=== PATIENT | female | born 1960 | race Caucasian/White ===

== ENCOUNTER 2020-06-14 07:46 | Inpatient (IN) | payer MEDICARE ==
[2020-06-10 13:45] LABS: BASOPHILS % 0.3 % (0.0-1.0); EOSINOPHILS # (AUTO) 0.2 (0.0-0.4); EOSINOPHILS % 1.4 % (0.0-6.0); HEMATOCRIT 41.4 % (34.2-44.1); HEMOGLOBIN 13.8 g/dL (12.0-16.0); LYMPHOCYTES # (AUTO) 3.3 (1.0-3.2); MEAN CORPUSCULAR HEMOGLOBIN 30.3 pg (28-32); MEAN CORPUSCULAR HGB CONC 33.3 g/dL (31-35); MONOCYTES # (AUTO) 0.7 (0.2-0.8); NEUTROPHILS # (AUTO) 7.5 (2.1-6.9); NEUTROPHILS % 63.8 % (38.7-80.0); PLATELET COUNT 308 x10e3/uL (140-360); RED BLOOD COUNT 4.55 x10e6/uL (3.6-5.1); RED CELL DISTRIBUTION WIDTH 13.1 % (11.7-14.4)
[2020-06-10 13:55] LABS: INR 0.83; PROTHROMBIN TIME 11.8 seconds (11.9-14.5)
[2020-06-10 13:56] LABS: PARTIAL THROMBOPLASTIN TIME 25.7 seconds (23.8-35.5)
[2020-06-10 14:01] LABS: BLOOD UREA NITROGEN 11 mg/dL (7-26); BUN/CREATININE RATIO 13 (6-25); CALCIUM 10.1 mg/dL (8.4-10.2); CARBON DIOXIDE 23 mmol/L (22-29); CHLORIDE 108 mmol/L (98-107); CREATININE, SERUM 0.85 mg/dL (0.57-1.11); EST GLOMERULAR FILTRATION RATE > 60 ML/MIN (60-); GLUCOSE 103 mg/dL (74-118); SODIUM 141 mmol/L (136-145)
[~2020-06-14] VITALS: Ht 172.7 cm; Wt 106.6 kg
[~2020-06-14 07:46] MED LIST: ATORVASTATIN CA10 MG PO; CYMBALTA30 MG PO; ESTRADIOL CREAM TOP; OMEPRAZOLE40 MG PO; OZEMPIC0.25 MG/0. SC; REQUIP3 MG PO; TEMAZEPAM30 MG PO; TRAZODONE HCL100 MG PO; XIIDRA1 EACH OP
[2020-06-14] MEDS ORDERED: CEFAZOLIN SOD 1 GM/NS 50ML 100 ML IV ONE (08:18)
[2020-06-14] MEDS ORDERED: BUPIVACAINE 0.25% 30ML SDV ONE (08:41)
[2020-06-14] MEDS ORDERED: METOCLOPRAMIDE HCL 10 MG/2ML VIAL ONE (10:34)
[2020-06-14] MEDS ORDERED: PROMETHAZINE HCL (IM) 25 MG/ML VIAL IM ONE (10:43)
[2020-06-14] MEDS ORDERED: FENTANYL CITRATE/PF 100MCG/2 ML INJ ONE ×2 (10:52→13:11)
[2020-06-14] MEDS ORDERED: SCOPOLAMINE 1.5 MG PATCH TOP SCH (11:45)
[2020-06-14 11:49] VITALS: BP 132/73
[2020-06-14 11:50] VITALS: BP 132/73
[2020-06-14 11:53] VITALS: BP 132/73
[2020-06-14 12:08] VITALS: BP 123/70
[2020-06-14] MEDS ORDERED: ONDANSETRON HCL INJ 2MG/ML 2ML 2 MG/ML VIAL ONE ×2 (12:18→12:55)
[2020-06-14] MEDS ORDERED: PROPOFOL IV EMULSION 10 MG/ML 20 ML VIAL ONE (12:55)
[2020-06-14] MEDS ORDERED: DEXAMETHASONE SOD PHOS INJ 4 MG/ML VIAL ONE (12:55)
[2020-06-14] MEDS ORDERED: ROCURONIUM BROMIDE 10 MG/ML 5ML VIAL IV ONE (12:55)
[2020-06-14] MEDS ORDERED: SEVOFLURANE INHAL SOLN 250 ML PEN BTL ONE (12:55)
[2020-06-14] MEDS ORDERED: LIDOCAINE HCL 2% LOCAL INJ 5 ML SDV VIAL INJ ONE (12:55)
[2020-06-14] MEDS ORDERED: MORPHINE SULFATE 2 MG/ML SYR 1ML ONE (13:07)
[2020-06-14] MEDS ORDERED: MIDAZOLAM HCL 2 MG/2 ML VIAL ONE (13:11)
[2020-06-14] MEDS: MORPHINE SULFATE 2 MG/ML SYR 1ML IV PRN ×3 (16:39→23:10)
[2020-06-14] MEDS: SODIUM CHLORIDE 0.9% 1000ML 1,000 ML IV SCH ×2 (16:39→20:45)
[2020-06-14] MEDS ORDERED: CIPROFLOXACIN/HYDROCORTISONE OTIC 10ML BTL OT SCH (17:00)
[2020-06-14] MEDS: LIFITEGRAST OP SCH (17:00)
[2020-06-14] MEDS: PANTOPRAZOLE SOD 40 MG TABEC PO SCH (18:22)
[2020-06-14] MEDS: CIPROFLOXACIN-DEXAMETHASONE (OTIC) 7.5 ML BOTTLE OT SCH (18:31)
[2020-06-14 20:00] VITALS: BP 116/68
[2020-06-14] MEDS: ENOXAPARIN SOD INJ 40 MG/0.4 ML SYR SC SCH (20:44)
[2020-06-14] MEDS: ONDANSETRON HCL INJ 2MG/ML 2ML 2 MG/ML VIAL IV PRN (20:45)
[2020-06-14] MEDS ORDERED: TRAZODONE HCL 50 MG TAB PO SCH (21:00)
[2020-06-14] MEDS ORDERED: ROPINIROLE HCL 3 MG PO SCH (21:00)
[2020-06-14] MEDS ORDERED: ROPINIROLE HCL 1 MG TAB PO SCH (21:00)
[2020-06-15] VITALS: BP 130/75
[2020-06-15] MEDS: MORPHINE SULFATE 2 MG/ML SYR 1ML IV PRN ×3 (02:30→06:57)
[2020-06-15] MEDS: ONDANSETRON HCL INJ 2MG/ML 2ML 2 MG/ML VIAL IV PRN (04:41)
[2020-06-15] MEDS: SODIUM CHLORIDE 0.9% 1000ML 1,000 ML IV SCH (04:42)
[2020-06-15 04:55] LABS: BASOPHILS % 0.2 % (0.0-1.0); EOSINOPHILS % 0.1 % (0.0-6.0); HEMOGLOBIN 12.7 g/dL (12.0-16.0); LYMPHOCYTES # (AUTO) 1.9 (1.0-3.2); LYMPHOCYTES % 11.2 % (18.0-39.1); MEAN CORPUSCULAR HEMOGLOBIN 30.3 pg (28-32); MEAN CORPUSCULAR HGB CONC 33.4 g/dL (31-35); MEAN CORPUSCULAR VOLUME 90.7 fL (81-99); MONOCYTES # (AUTO) 1.1 (0.2-0.8); MONOCYTES % 6.1 % (4.4-11.3); NEUTROPHILS # (AUTO) 14.1 (2.1-6.9); NEUTROPHILS % 81.6 % (38.7-80.0); PLATELET COUNT 313 x10e3/uL (140-360); RED BLOOD COUNT 4.19 x10e6/uL (3.6-5.1); RED CELL DISTRIBUTION WIDTH 13.2 % (11.7-14.4)
[2020-06-15 05:11] LABS: ALANINE AMINOTRANSFERASE 22 IU/L (0-55); ALBUMIN 3.7 g/dL (3.5-5.0); ALBUMIN/GLOBULIN RATIO 1.3 (0.8-2.0); ALKALINE PHOSPHATASE 86 IU/L (40-150); ANION GAP 11.9 mmol/L (8-16); BLOOD UREA NITROGEN 10 mg/dL (7-26); BUN/CREATININE RATIO 13 (6-25); CALCIUM 8.9 mg/dL (8.4-10.2); CARBON DIOXIDE 24 mmol/L (22-29); CHLORIDE 108 mmol/L (98-107); CREATININE, SERUM 0.78 mg/dL (0.57-1.11); EST GLOMERULAR FILTRATION RATE > 60 ML/MIN (60-); GLUCOSE 111 mg/dL (74-118); MAGNESIUM 1.8 MG/DL (1.3-2.1); PHOSPHORUS 2.3 MG/DL (2.3-4.7); POTASSIUM 3.9 mmol/L (3.5-5.1); SODIUM 140 mmol/L (136-145)
[2020-06-15 05:56] VITALS: BP 129/78
[2020-06-15] MEDS ORDERED: HYDROCODONE/APAP 7.5MG-325MG 1 EA TAB PO PRN (07:00)
[2020-06-15 08:00] VITALS: BP 158/84
[2020-06-15] MEDS: CIPROFLOXACIN-DEXAMETHASONE (OTIC) 7.5 ML BOTTLE OT SCH (08:40)
[2020-06-15] MEDS: ENOXAPARIN SOD INJ 40 MG/0.4 ML SYR SC SCH (08:40)
[2020-06-15] MEDS: PANTOPRAZOLE SOD 40 MG TABEC PO SCH (08:40)
[2020-06-15] MEDS: LIFITEGRAST OP SCH (08:41)
[2020-06-15 08:42] VITALS: BP 158/84
[2020-06-15] MEDS ORDERED: ATORVASTATIN 10 MG TAB PO SCH (09:00)
[2020-06-15] MEDS ORDERED: DULOXETINE HCL 30 MG DELAYED RELEASE PO SCH (09:00)
== END 2020-06-15 09:33 | disposition home or self-care (01) | DRG 621 ==
LOC: OR 07:46 → PACU V 09:16 → COVIDICU 12:42 → MED/SURG 17:46
PROVIDERS: ADMIT Internal Medicine; ATTEND Internal Medicine
PROC: 0DB64Z3 Excision of Stomach, Percutaneous Endoscopic Approach, Vertical (ICD-10-PCS; principal; 2020-06-14 09:30)
DX: E66.01 Morbid (severe) obesity due to excess calories (principal); I10 Essential (primary) hypertension; G47.33 Obstructive sleep apnea (adult) (pediatric); R73.03 Prediabetes; K66.0 Peritoneal adhesions (postprocedural) (postinfection); E78.5 Hyperlipidemia, unspecified; K21.9 Gastro-esophageal reflux disease without esophagitis; G25.81 Restless legs syndrome; Z82.5 Family history of asthma and other chronic lower respiratory diseases; Z82.49 Family history of ischemic heart disease and other diseases of the circulatory system; H60.92 Unspecified otitis externa, left ear; Z68.35 Body mass index [BMI] 35.0-35.9, adult; Z20.828 Contact with and (suspected) exposure to other viral communicable diseases
CPT/HCPCS: 36415; 80048; 80053; 82948; 83735; 84100; 85025; 85610; 85730; 93005; 96361; J0690; J1100; J1650; J2001; J2250; J2270; J2405; J2550; J2765; J3010; J7030; U0002